=== PATIENT | male | born 1960 | race American Indian/Alaskan Native ===

== ENCOUNTER 2020-10-14 02:57 | Emergency (ER) | payer BC ==
[2020-10-14 04:29] VITALS: BP 135/90
[2020-10-14] MEDS ORDERED: TETANUS,DIPH,PERTUSS(ACELL) VACCINE 0.5 ML SYRINGE IM ONE (04:38)
[2020-10-14] MEDS ORDERED: IBUPROFEN 800 MG TAB PO ONE (04:41)
[2020-10-14] MEDS ORDERED: ACETAMINOPHEN 500 MG TAB PO ONE (04:41)
[2020-10-14] MEDS ORDERED: LIDOCAINE-MPF (1%) 10 MG/1 ML VIAL 5 ML INFILTRATI ONE (04:49)
--- NOTE | 2020-10-14 05:13 | XRay Report ---
LEFT FINGERS 3 VIEWS INDICATION / CLINICAL INFORMATION: laceration to left index finger COMPARISON: None available. FINDINGS: BONES / JOINT(S): No acute fracture or subluxation. No significant arthritis. SOFT TISSUES: No radiopaque foreign body. ADDITIONAL FINDINGS: None. Signer Name: Stone Parson MD Signed: 10/14/2020 5:09 AM Workstation Name: [id number]
--- NOTE | 2020-10-14 06:12 | Emergency Department Report ---
ED General Adult HPI - General Chief complaint: Laceration/Recheck/Suture Stated complaint: LT FINGER INJURY Time Seen by Provider: 10/14/20 05:47 Source: patient Mode of arrival: Ambulatory Limitations: No Limitations - History of Present Illness Initial comments: Patient 59-year-old male who presents for left index finger laceration flap. States he cut it with his new pocket knife. Last tetanus shot unknown, bleeding was controlled and feel with direct pressure by patient. There is no muscle tendon or nerve damage as range of motion is intact and there is no obvious deformity. Severity scale (0 -10): 4 - Related Data Previous Rx's Medication Instructions Recorded Last Taken Type traMADoL [Ultram] 50 mg PO Q6HR PRN #12 tablet 10/14/20 Unknown Rx Allergies Allergy/AdvReac Type Severity Reaction Status Date / Time No Known Allergies Allergy Unverified 10/14/20 04:32 ED Review of Systems ROS: Stated complaint: LT FINGER INJURY Other details as noted in HPI Constitutional: denies: chills, fever Eyes: denies: eye pain, eye discharge, vision change ENT: denies: ear pain, throat pain Respiratory: denies: cough, shortness of breath, wheezing Cardiovascular: denies: chest pain, palpitations Endocrine: no symptoms reported Gastrointestinal: denies: abdominal pain, nausea, diarrhea Genitourinary: denies: urgency, dysuria Musculoskeletal: denies: back pain, joint swelling, arthralgia Skin: other (left index finger laceration ) Neurological: denies: headache, weakness, paresthesias Psychiatric: denies: anxiety, depression Hematological/Lymphatic: denies: easy bleeding, easy bruising ED Past Medical Hx - Past Medical History Previous Medical History?: No - Surgical History Past Surgical History?: Yes Additional Surgical History: Left rotator - Social History Smoking Status: Current Some Day Smoker Substance Use Type: None - Medications Home Medications: Home Medications Medication Instructions Recorded Confirmed Last Taken Type traMADoL [Ultram] 50 mg PO Q6HR PRN #12 tablet 10/14/20 Unknown Rx ED Physical Exam - General Limitations: No Limitations General appearance: alert, in no apparent distress - Head Head exam: Present: atraumatic, normocephalic - Eye Eye exam: Present: normal appearance - ENT ENT exam: Present: mucous membranes moist - Neck Neck exam: Present: normal inspection - Respiratory Respiratory exam: Present: normal lung sounds bilaterally. Absent: respiratory distress - Cardiovascular Cardiovascular Exam: Present: regular rate, normal rhythm. Absent: systolic murmur, diastolic murmur, rubs, gallop - GI/Abdominal GI/Abdominal exam: Present: soft, normal bowel sounds - Rectal Rectal exam: Present: deferred - Extremities Exam Extremities exam: Present: full ROM, normal capillary refill. Absent: tenderness - Expanded Upper Extremity Exam Left Hand Wrist exam: Present: full ROM, tenderness, laceration (left lateral volar distal index finger flap laceration ) Neuro motor exam: Present: wrist extension intact, thumb opposition intact, thumb IP flexion intact, thumb adduction intact, fingers 2-5 abduction intact Vascular: Present: normal capillary refill - Back Exam Back exam: Present: normal inspection, full ROM, tenderness - Neurological Exam Neurological exam: Present: alert, oriented X3, CN II-XII intact, normal gait - Expanded Neurological Exam Expanded Patient oriented to: Present: person, place, time Motor strength exam: RUE: 5, LUE: 5 Best Eye Response (Funmilayo): (4) open spontaneously Best Motor Response (Funmilayo): (6) obeys commands Best Verbal Response (Funmilayo): (5) oriented [place] Total: 15 - Psychiatric Psychiatric exam: Present: normal affect, normal mood - Skin Skin exam: Present: warm, dry, intact, normal color. Absent: rash ED Course Vital Signs 10/14/20 03:49 Temperature 98.2 F Pulse Rate 68 Respiratory 16 Rate Blood Pressure 135/90 O2 Sat by Pulse 98 Oximetry - Laceration /Wound Repair Left Volar Finger Wound Location: upper extremity (Left lateral volar distal index finger laceration flap no nerve tendon or muscle damage range of motion is intact to direct confrontation PUFF IRONER less than 3 seconds) Wound Length (cm): 2 Wound's Depth, Shape: superficial Wound Explored: clean Irrigated w/ Saline (ccs): 30 Betadine Prep?: Yes Anesthesia: 1% Lidocaine Volume Anesthetic (ccs): 1 (digital block ) Wound Debrided: minimal Wound Repaired With: sutures Suture Size/Type: 3:0, proline Number of Sutures: 3 Sterile Dressing Applied?: Yes Progress: Left distal index finger flap laceration, anesthesia with 1% lidocaine x1 cc digital block anesthesia was achieved, wound cleaned with Betadine solution, wound irrigated with 30 cc sterile saline, wound closed with 3.0 Vicryl times 3 sutures, all bleeders controlled edges well approximated sterile dressing is applied. CMS range of motion remains intact. Patient tolerated procedure with minimal distress patient given wound care instruction including follow-up with PCP in 2 to 3 days for wound check, follow-up PCP in 7 to 10 days for suture removal. Patient verbalized understanding of same. ED Medical Decision Making - Radiology Data Radiology results: report reviewed, image reviewed LEFT FINGERS 3 VIEWS INDICATION / CLINICAL INFORMATION: laceration to left index finger COMPARISON: None available. FINDINGS: BONES / JOINT(S): No acute fracture or subluxation. No significant arthritis. SOFT TISSUES: No radiopaque foreign body. ADDITIONAL FINDINGS: None. Signer Name: Stone Parson MD Signed: 10/14/2020 5:09 AM Workstation Name: [id number] Transcribed By: ES Dictated By: Stone Parson MD Electronically Authenticated By: Stone Parson MD Signed Date/Time: 10/14/20508 DD/ 7 TD/TT: - Medical Decision Making Left index finger laceration see procedure note. All bleeding is controlled. Patient DC'd home at this time. Tetanus shot given in ED. Patient verbalizes agreement and understanding with wound care. Follow-up with PCP as directed. Critical care attestation.: If time is entered above; I have spent that time in minutes in the direct care of this critically ill patient, excluding procedure time. ED Disposition Clinical Impression: Laceration of left index finger Qualifiers: Encounter type: initial encounter Damage to nail status: without damage Foreign body presence: without foreign body Qualified Code(s): S61.211A - Laceration without foreign body of left index finger without damage to nail, initial encounter Disposition: DC-01 TO HOME OR SELFCARE Is pt being admited?: No Does the pt Need Aspirin: No Condition: Stable Instructions: Laceration Care, Adult, Sutures, [place], or Adhesive Wound Closure Additional Instructions: follow up with your doctor in 2-3 days for wound check, and 7-10 days for suture removal, return to emergency if symptoms worsen Prescriptions: traMADoL [Ultram] 50 mg PO Q6HR PRN #12 tablet PRN Reason: Pain Referrals: DAKSHA BHATTI MD [Staff Physician] - 3-5 Days Forms: Work/School Release Form(ED) Time of Disposition: 06:11
== END 2020-10-14 06:15 | disposition home or self-care (01) ==
LOC: ED 02:57
DX: S61.211A Laceration without foreign body of left index finger without damage to nail, initial encounter (principal); F17.200 Nicotine dependence, unspecified, uncomplicated; Z98.890 Other specified postprocedural states; Z79.899 Other long term (current) drug therapy; W26.0XXA Contact with knife, initial encounter; Y93.89 Activity, other specified; Y92.89 Other specified places as the place of occurrence of the external cause; Y99.8 Other external cause status
CPT/HCPCS: 90471; 90715

== ENCOUNTER 2021-07-24 22:47 | Emergency (ER) | payer BC ==
[2021-07-25 01:22] VITALS: BP 145/90
--- NOTE | 2021-07-25 02:04 | XRay Report ---
Right femur, 4 views HISTORY: Injury COMPARISON: None FINDINGS: No acute fracture or malalignment. No significant arthritis. No focal soft tissue abnormali ty. IMPRESSION: No acute process Signer Name: Geovanny Garcia MD Signed: 07/25/2021 2:00 AM Workstation Name: [id number]
[2021-07-25] MEDS ORDERED: oxyCODONE /ACETAMINOPHEN 5-325MG TAB PO ONE (04:40)
--- NOTE | 2021-07-25 04:53 | Emergency Department Report ---
ED Lower Extremity HPI - General Chief Complaint: Extremity Injury, Lower Stated Complaint: FALL/RT LEG INJURY Time Seen by Provider: 07/25/21 04:00 Source: patient Mode of arrival: Wheelchair Limitations: Physical Limitation - History of Present Illness MD Complaint: leg injury -: Gradual Injury: Leg: Right Type of Injury: other (Was coming down the steps and accidentally missed the last 2 steps due to the darkness and fell down) Place: home Severity: mild Improves With: nothing Worsens With: nothing Associated Symptoms: snap/pop sensation, unable to bear weight Treatments Prior to Arrival: cold therapy - Related Data Previous Rx's Medication Instructions Recorded Last Taken Type traMADoL [Ultram] 50 mg PO Q6HR PRN #12 tablet 10/14/20 Unknown Rx Acetaminophen/Codeine [Tylenol #3] 1 tab PO Q6H PRN #10 tab 07/25/21 Unknown Rx Ketorolac [Toradol] 10 mg PO Q6H PRN #15 tablet 07/25/21 Unknown Rx methOCARBAMOL [Robaxin TAB] 750 mg PO Q8H PRN #14 tablet 07/25/21 Unknown Rx Allergies Allergy/AdvReac Type Severity Reaction Status Date / Time No Known Allergies Allergy Unverified 10/14/20 04:32 ED Review of Systems ROS: Stated complaint: FALL/RT LEG INJURY Other details as noted in HPI Comment: All other systems reviewed and negative ED Past Medical Hx - Surgical History Additional Surgical History: Left rotator - Social History Smoking Status: Current Some Day Smoker Substance Use Type: None - Medications Home Medications: Home Medications Medication Instructions Recorded Confirmed Last Taken Type traMADoL [Ultram] 50 mg PO Q6HR PRN #12 tablet 10/14/20 Unknown Rx Acetaminophen/Codeine [Tylenol #3] 1 tab PO Q6H PRN #10 tab 07/25/21 Unknown Rx Ketorolac [Toradol] 10 mg PO Q6H PRN #15 tablet 07/25/21 Unknown Rx methOCARBAMOL [Robaxin TAB] 750 mg PO Q8H PRN #14 tablet 07/25/21 Unknown Rx ED Physical Exam - General Limitations: Physical Limitation General appearance: alert, in no apparent distress - Head Head exam: Present: atraumatic, normocephalic - Eye Eye exam: Present: normal appearance, PERRL, EOMI Pupils: Present: normal accommodation - ENT ENT exam: Present: normal exam, normal orophraynx, mucous membranes moist, TM's normal bilaterally - Neck Neck exam: Present: normal inspection - Respiratory Respiratory exam: Present: normal lung sounds bilaterally. Absent: respiratory distress - Cardiovascular Cardiovascular Exam: Present: regular rate, normal rhythm. Absent: systolic murmur, diastolic murmur, rubs, gallop - GI/Abdominal GI/Abdominal exam: Present: soft, normal bowel sounds - Rectal Rectal exam: Present: deferred - Extremities Exam Extremities exam: Present: normal inspection, tenderness - Expanded Lower Extremity Exam Right Upper Leg exam: Present: tenderness, swelling Knee exam: Present: tenderness, swelling (To the lower femur just above the knee laterally located pain at the insertion site of the vastus lateralis.). Absent: normal inspection Ankle exam: Present: normal inspection Foot/Toe exam: Present: normal inspection Neuro vascular tendon exam: Present: no vascular compromise - Back Exam Back exam: Present: normal inspection. Absent: CVA tenderness (R), CVA tenderness (L) - Neurological Exam Neurological exam: Present: alert, oriented X3, CN II-XII intact - Psychiatric Psychiatric exam: Present: normal affect, normal mood - Skin Skin exam: Present: warm, dry, intact, normal color. Absent: rash ED Course Vital Signs 07/25/21 01:16 Temperature 98.4 F Pulse Rate 92 H Respiratory 18 Rate Blood Pressure 145/90 [Right] O2 Sat by Pulse 96 Oximetry Critical care attestation.: If time is entered above; I have spent that time in minutes in the direct care of this critically ill patient, excluding procedure time. ED Disposition Clinical Impression: Injury of quadriceps muscle Disposition: HOME / SELF CARE / HOMELESS Is pt being admited?: No Does the pt Need Aspirin: No Condition: Stable Instructions: Patellar Tendon Tear Referrals: [facility] [Provider Group] - 3-5 Days MARCE GARCIA MD [Staff Physician] - 3-5 Days
== END 2021-07-25 05:50 | disposition home or self-care (01) ==
LOC: ED 22:47
DX: S76.101A Unspecified injury of right quadriceps muscle, fascia and tendon, initial encounter (principal); F17.200 Nicotine dependence, unspecified, uncomplicated; X58.XXXA Exposure to other specified factors, initial encounter; Y93.89 Activity, other specified; Y92.89 Other specified places as the place of occurrence of the external cause; Y99.8 Other external cause status
CPT/HCPCS: 99283